=== PATIENT | female | born 1990 | race Caucasian/White ===

== ENCOUNTER 2024-08-06 13:06 | Emergency (ER) | payer OTHER, SELFPAY ==
[2024-08-06 13:22] VITALS: BP 112/74; PULSE 61; RESP 18; TEMP 36.6; O2SAT 97; BMI 23.8
--- NOTE | 2024-08-06 14:02 | XR_ITS ---
Examination: Lumbar spine 2 views Technique one AP lateral lumbar spine 2 views Date and time: August 06, 2004, 1411 hrs. Indications: Work injury to the lower back today. Findings: Adequate alignment lumbar vertebral bodies. No lumbar fracture. Mild disc narrowing L5-S1 No spondylolisthesis Impression: No lumbar fracture
--- NOTE | 2024-08-06 14:02 | XR_ITS ---
Examination: Cervical spine 3 views Technique: AP lateral coned AP odontoid cervical spine 3 views Date and time: August 06, 2024, 10 hours Indications: Injury to the neck today, neck pain. Findings: Satisfactory alignment cervical vertebral bodies The odontoid is intact There is no AP view of the cervical spine Impression: Limited study No acute fracture depicted
--- NOTE | 2024-08-06 14:02 | XR_ITS ---
Examination: Thoracic line 2 views Technique: AP lateral thoracic spine 2 views Date and time: August 06, 2024 1407 hrs. Indications: Injury to the back today, mid back pain Findings: Adequate alignment thoracic vertebral bodies on the lateral view No significant thoracic disc narrowing. No thoracic fracture Impression: No thoracic fracture
--- NOTE | 2024-08-06 15:04 | EDNOTE_ITS ---
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 neck pain patient denies any numbness weakness tingling sensation or incontinence to urine or stool denies any headache or dizziness due to persistence of the symptoms this patient decided to sought consult in the emergency ROOM Limitations: no limitations Related Data Previous Rx's ?Medication ?Instructions ?Recorded naproxen 500 mg tablet 500 mg PO BID #20 tabs 11/07 cyclobenzaprine 10 mg tablet 10 mg PO BID PRN muscle s pasm #10 08/06/24 tabs ibuprofen 800 mg tablet 800 mg PO Q8H PRN pain #20 t abs 08/06/24 Allergies Allergy/AdvReac Type Severity Reaction Status Date / Time Penicillins Allergy Mild RASH Verified 10/05/20 14:09 Review of Systems Review of Systems Systems Reviewed: All systems reviewed, normal except as documented Constitutional Constitutional: Reports system reviewed and no additional complaints, except as documented and Reports as per HPI ENT Ears, Nose, Mouth, and Throat: Reports neck pain Cardiovascular Cardiovascular: Reports system reviewed and no additional complaints, except as documented and Reports as per HPI Respiratory Respiratory: Reports system reviewed and no additional complaints, except as documented and Reports as per HPI Gastrointestinal Gastrointestinal: Reports system reviewed and no additional complaints, except as documented and Reports as per HPI Genitourinary Genitourinary: Reports system reviewed and no additional complaints, except as documented and Reports as per HPI Musculoskeletal Musculoskeletal: Reports system reviewed and no additional complaints, except as documented, Reports as per HPI, Denies abnormal gait, Denies arthralgias, Denies atrophy, Reports back pain, Denies deformity, Denies joint swelling, Denies limited range of motion, Denies loss of height, Denies muscle cramps, Denies muscle weakness, Denies myalgias, Reports neck pain, Denies numbness, Denies radiating pain into limb, Denies stiffness and Denies tingling Neurologic Neurologic: Reports system reviewed and no additional complaints, except as documented, Reports as per HPI, Denies abnormal gait, Denies numbness and Denies tingling Past Medical History Past Medical History CARDIAC: Negative Congestive Heart Failure RESPIRATORY: Negative Chronic Obstructive Pulmonary Disease (COPD) GENITOURINARY: Negative Renal Disease ENDOCRINE: Negative Diabetes Mellitus Type 1 or Diabetes Mellitus Type 2 Social History SMOKING STATUS: Never smoker ED Exam General Limitations: Present no limitations General appearance: Present alert and in no apparent distress Head Head exam: Present atraumatic, normocephalic and normal inspection Eye Eye exam: Present normal appearance, PERRL and EOMI ENT ENT exam: Present normal exam, normal oropharynx and mucous membranes moist Neck Neck exam: Present normal inspection, full ROM, trachea midline and tenderness (Noted mild tenderness on the cervical area no crepitation no deformity no paraspinal no paravertebral tenderness ROM intact neurovascular intact); Absent meningismus, lymphadenopathy or thyromegaly Expanded Neck Exam Neck exam focused ED: Present midline tenderness and other; Absent paraspinal tenderness, tenderness (other), tracheal deviation, anterior neck swelling, thyroid enlargement, JVD or carotid bruit Chest Chest inspection: Present normal inspection and symmetric chest wall rise; Absent tenderness, rash or abscess Respiratory Respiratory exam: Present normal lung sounds bilaterally; Absent respiratory distress, wheezes, stridor, accessory muscle use or prolonged expiratory phase Cardiovascular Cardiovascular exam: Present regular rate, normal rhythm and normal heart sounds; Absent bradycardia, tachycardia, irregular rhythm or systolic murmur Abdominal Exam Abdominal exam: Present soft and normal bowel sounds; Absent tenderness Extremities Exam Extremities exam: Present normal inspection and full ROM Back Exam Back exam: Present normal inspection, full ROM and tenderness (Mild to moderate tenderness to L1-L5 no crepitation no deformity no swelling no CVA tenderness mild muscle spasm no paraspinal no paravertebral tenderness leg raise exam is normal steady gait ROM intact neurovascular intact) Neurological Exam Neurological exam: Present alert, oriented X3, CN II-XII intact, normal gait and reflexes normal; Absent motor sensory deficit Psychiatric Psychiatric exam: Present normal affect and normal mood Skin Skin exam: Present warm, dry, intact and normal color Course Quality Measures none Orders Category Date Time Status XR cervical spine 2-3V Stat Exams 08/06/24 14:02 Completed XR lumbar spine 2-3V Stat Exams 08/06/24 14:02 Completed XR thoracic spine 3V Stat Exams 08/06/24 14:02 Completed Dexamethasone Inj [Decadron Inj] Med 08/06/24 14:57 Discontinued 10 mg IM X1 ONE Ketorolac Inj [Toradol Inj] Med 08/06/24 14:57 Discontinued 30 mg IM X1 ONE Vital Signs Vital signs: Vital Signs Temperature 98 F 08/06/24 13:22 Pulse Rate 61 08/06/24 13:22 Respiratory Rate 18 08/06/24 13:22 Blood Pressure 112/74 08/06/24 13:22 Pulse Oximetry (%) 97 08/06/24 13:22 Oxygen Delivery Method Room Air 08/06/24 13:22 Oxygen saturation 97% in room air normal Back Pain / Injury MDM Narrative MDM Narrative:: This is a case of 33-year-old female who came in in the emergency room due to neck mid back and lower back pain for 2 days 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 neck pain patient denies any numbness weakness tingling sensation or incontinence to urine or stool denies any headache or dizziness due to persistence of the symptoms this patient decided to sought consult in the emergency ROOM patient is awake alert oriented not in distress nontoxic looking noted mild to moderate tenderness on the cervical area no crepitation no deformity no redness no swelling no cellulitis no paraspinal no paravertebral tenderness ROM intact neurovascular intact patient noted to have mild to moderate tenderness in the thoracic and lumbar area no crepitation no deformity no redness no swelling patient ROM is intact neurovascular intact no CVA tenderness mild muscle spasm leg raise exam is normal x-ray showed no fracture no dislocation other cervical thoracic and lumbar noted an incidental finding of DDD lumbar patient was advised to follow- up to see primary care physician to be referred to neurosurgeon to have MRI to rule out herniated disc this worsening symptoms or any emergent concerns such as numbness weakness tingling sensation or incontinence to urine or stool call 911 or go to the nearest emergency room at the time back exam no signs and symptoms of cauda equina patient was given a work note with some limitation Patient was discharged with comfortable condition walking with stable gait. Patient verbalized no further complains explained diagnosis and answered patient question. Patient is comfortable with the proposed management plan including the need to follow up with his/her primary care physician and any specialist if applicable Discussed patient for any urgent condition or worsening sx, He/She needed to go to emergency room immediately or call 911. Patient acknowledge the responsibility to follow up as instructed and to monitor her/his symptoms. For any persistence of the symptoms for more than 3-5 days return precaution advised. Discussed the result of the test and was given printed discharge instruction Patient data External records reviewed:: [facility] previous records Clinical information provided by:: patient Social determinants that could affect healthcare access:: none Patient has the following chronic illnesses:: None How is presenting disease/condition affected by chronic disease/condition?: no chronic disease Evaluation data The following diagnostics were reviewed and interpreted by me:: radiology exam(s) and other (specify) Lab and/or radiology exams considered but not ordered:: Reviewed Interpretation Summary: Reviewed Medications / Prescriptions Medications or Prescriptions considered but not ordered:: Given Medication administrations:: Medication Administration History Discontinued Medications Dexamethasone Sodium Phosphate (Dexamethasone Sod Phos Inj 10 Mg/Ml Vial) 10 mg IM X1 ONE Stop: 08/06/24 14:58 Ketorolac Tromethamine (Ketorolac Inj 60 Mg/2 Ml Vial) 30 mg IM X1 ONE Stop: 08/06/24 14:58 Given Consultations Consultation(s) initiated? (list below): No Diagnosis Differential diagnosis back pain/injury: other (Sprain of thoracic cervical and lumbar) Most likely diagnosis given after review of the tests above:: Sprain of thoracic cervical and lumbar Admission Indicated Admission indicated?: not indicated Explain why admission is indicated or not indicated:: Not indicated Admission Request Was there a request for admission?: No Admission Attestation Admission request attestation: Not indicated Disposition Plan Disposition Plan: Discharge Discharge Attestation Discharge Attestation: The patient and all family members were given an opportunity to ask questions and understood the discharge instructions. Discharge instructions specifically effects, indications for sooner follow up or return to the emergency department, and the expected course of current diagnosis. Patient condition: Stable Discharge Plan Plan Patient Disposition: HOME (Self Care) Patient condition on transfer: Stable Prescriptions/Referrals Prescriptions/Med Rec: New ibuprofen 800 mg tablet 800 mg PO Q8H PRN (Reason: pain) Qty: 20 0RF cyclobenzaprine 10 mg tablet 10 mg PO BID PRN (Reason: muscle spasm) Qty: 10 0RF No Action naproxen 500 mg tablet 500 mg PO BID Qty: 20 0RF Problem List Clinical Impression: Cervical sprain, Sprain of thoracic region, Lumbar sprain, DDD (degenerative disc disease), lumbar Patient/Caregiver Discharge Instructions Education Materials: Self-Care for Strains and Sprains, Common Spine and Disk Problems, ED Back Sprain/Strain, ED Degenerative Disk Disease, ED Neck Sprain or Strain Additional Instructions: Follow-up with your primary care physician in 2 days for reevaluation and to be referred to a neurosurgeon for faster evaluation and treatment of DDD lumbar for possible MRI to rule out herniated disc worsening symptoms or any emergent concerns such as numbness weakness tingling sensation incontinence of urine or stool call 911 or go to the nearest emergency room ice pack and warm compress as needed for pain take your medication as DIRECTED Print Language: Urdu Stand Alone Forms: [employer] Award Info., Work/School Release, Patient Portal Info Letter PA/PRACTICE DIRECTOR Supervising Physician JAZZMINE/WAGNER Supervising Physician: DR ANGELES
[2024-08-06] MEDS: KETOROLAC INJ 60 MG/2 ML VIAL 30 MG IM (15:39)
[2024-08-06] MEDS: DEXAMETHASONE SOD PHOS INJ 10 MG/ML VIAL IM (15:39)
== END 2024-08-06 15:53 | disposition home or self-care (01) ==
LOC: SERX 15:12
PROVIDERS: Emergency Provider Emergency Medicine; PCP Family Medicine
DX: S13.4XXA Sprain of ligaments of cervical spine, initial encounter (principal); S23.3XXA Sprain of ligaments of thoracic spine, initial encounter; S33.5XXA Sprain of ligaments of lumbar spine, initial encounter; X50.9XXA Other and unspecified overexertion or strenuous movements or postures, initial encounter; Y99.0 Civilian activity done for income or pay
CPT/HCPCS: 72040; 72072; 72100; 96372; 99283; J1100; J1885